=== PATIENT | male | born 1940 | race Caucasian/White ===

== ENCOUNTER → 2016-11-22 | Outpatient (CLI) | payer MEDICARE ==
[~2016-11-22] MED LIST: ASPI325T PO; CEPH500 PO; LISI-360 PO; METHO500 PO; PROZ40CA PO; SAW160TA PO; TAB-TAB PO; VITA100017 PO
== END ==
LOC: CLAB 14:21
PROVIDERS: ATTEND Specialist
DX: B18.2 Chronic viral hepatitis C (principal); Z79.899 Other long term (current) drug therapy
CPT/HCPCS: 36415; 82140

== ENCOUNTER → 2017-02-15 | Outpatient (CLI) | payer MEDICARE | LOC: CLAB 12:16 | PROVIDERS: ATTEND Specialist | DX: B18.2 Chronic viral hepatitis C (principal); R79.89 Other specified abnormal findings of blood chemistry; Z79.899 Other long term (current) drug therapy | CPT/HCPCS: 36415; 82140 ==

== ENCOUNTER → 2017-09-28 | Outpatient (CLI) | payer MEDICARE | LOC: CLAB 12:26 | PROVIDERS: ATTEND Specialist | DX: B18.2 Chronic viral hepatitis C (principal); Z79.899 Other long term (current) drug therapy; R79.89 Other specified abnormal findings of blood chemistry; R79.9 Abnormal finding of blood chemistry, unspecified | CPT/HCPCS: 36415; 82140 ==

== ENCOUNTER → 2017-11-03 | Outpatient (CLI) | payer MEDICARE | LOC: CLAB 13:59 | PROVIDERS: ATTEND Specialist | DX: B18.2 Chronic viral hepatitis C (principal); M54.5 Low back pain; I10 Essential (primary) hypertension; R79.9 Abnormal finding of blood chemistry, unspecified; B00.9 Herpesviral infection, unspecified; R79.89 Other specified abnormal findings of blood chemistry; N42.9 Disorder of prostate, unspecified | CPT/HCPCS: 36415; 82140 ==